=== PATIENT | male | born 1940 | race Caucasian/White ===

== ENCOUNTER 2017-08-12 08:15 | Emergency (ER) | payer MEDICARE, OTHER ==
[~2017-08-12] VITALS: Ht 170.2 cm; Wt 89.0 kg
[2017-08-12 08:22] VITALS: Ht 170.2 cm; Wt 89.0 kg
[2017-08-12] MEDS ORDERED: morphine 4 MG/ML VIAL IV STA (09:10)
[2017-08-12] MEDS ORDERED: SOD CHLORIDE 0.9% 1,000 ML IV STA (09:10)
[2017-08-12] MEDS ORDERED: KETOROLAC 30 MG INJ IV STA (09:10)
[2017-08-12] MEDS ORDERED: ONDANSETRON 4 MG INJ IV STA ×3 (09:10→11:17)
--- NOTE | 2017-08-12 09:17 | ERD ---
ER Documentation Chief Complaint Chief Complaint Complains of back and flank pain x 5 days HPI This is a very pleasant 77-year-old male with a past medical history of remote prostate cancer, in remission who presents to the emergency department complaining of left flank pain for the past 5 days. Patient indicated that 2 days before the onset of the pain he had been lying on the left side for roughly 4 hours on hard surfaces he was fixing a leak in his sink. The patient lives in [facility]. Indicates he did not feel any pain the day after the prolonged immobilization and came to drive to [place] to visit his brother. He indicates that during the drive he started to develop some left flank pain. The pain has progressively worsened over the past 24 hours. He took 400 mg of Motrin prior to arrival with no improvement of his symptoms. He states that the pain is localized to the left flank region, 8 out of 10 in intensity, and is exacerbated with movement. He denies any changes in his bladder or bowel frequency. He has had no fevers or shaking or chills. He denies any shortness of breath at rest or exertion. He denies any chest pain or pressure that radiates the neck arm back or jaw. He denies any calf tenderness or swelling. He states he has never had any similar symptoms in the past. He denies any hemoptysis hematemesis or melanotic stools and denies any nausea. ROS All systems reviewed and are negative except as per history of present illness. Medications Home Meds Reported Medications Atorvastatin Calcium* (Atorvastatin Calcium*) 20 Mg Tablet, 20 MG PO QHS, #30 TAB 08/12/17 Lisinopril* (Lisinopril*) 20 Mg Tablet, 20 MG PO DAILY, #30 TAB 08/12/17 Temazepam* (Temazepam*) 30 Mg Capsule, 30 MG PO HS Y for INSOMNIA, CAP 08/12/17 Aspirin* (Aspirin* Chew) 81 Mg Tab.chew, 81 MG PO DAILY, TAB.CHEW 08/12/17 Discontinued Reported Medications Simvastatin* (Zocor*) 20 Mg Tablet, 20 MG PO QHS, #30 TAB 08/12/17 Simvastatin* (Zocor*) 20 Mg Tablet, 20 MG PO QHS, #30 TAB 08/12/17 Allergies Allergies: Coded Allergies: Penicillins (Verified Allergy, Severe, 08/12/17) PMhx/Soc History of Surgery: Yes ([facility]EM[facility] 2015) Hx Neurological Disorder: No Hx Respiratory Disorders: No Hx Cardiac Disorders: Yes (HTN) Hx Psychiatric Problems: No Hx Alcohol Use: No Hx Substance Use: No Smoking Status: Never smoker Physical Exam Vitals Vital Signs Date Time Temp Pulse Resp B/P Pulse Ox O2 Delivery O2 Flow Rate FiO2 08/12/17 08:22 98.6 79 20 149/83 98 Physical Exam Constitutional:Well-developed. Well-nourished. HEENT:Normocephalic. Atraumatic.Pupils were equal round reactive to light. Moist mucous membranes.No tonsillar exudates. Neck: No nuchal rigidity. No lymphadenopathy. No posterior cervical spine tenderness or step-offs. Respiratory: Not using accessory muscles of respiration.Lungs were clear to auscultation bilaterally. No rhonchi. No rales. No wheezing. Cardiovascular: Regular rate regular rhythm.No murmurs. No rubs were appreciated.S1, S2 normal. Distal pulses are palpable 2+ bilaterally. GI: Abdomen was soft. Nontender. Non Distended. No pulsatile abdominal masses or bruits. No rebound. No guarding. Bowel sounds were present and normal. Left CVA tenderness. No flank ecchymosis. No periumbilical ecchymosis. Muscle skeletal: Full range of motion of both the upper and lower extremities bilaterally.Normal muscle tone.No assymetrical calf tenderness or swelling. Christy's sign negative bilaterally. Straight leg test negative bilaterally. Skin: No petechia, no purpura. No lesions on the palms or the soles of the feet. No maculopapular rash. NEURO: Patient was alert, awake, orientated x3.No facial droop. Gait observed and normal with no ataxia.Speech had regular rate and rhythm. No focal neurological deficits. Result Diagram: 08/12/1730 08/12/1730 Results 24 hrs Laboratory Tests Test 08/12/17 09:30 White Blood Count 6.610^3/ul Red Blood Count 4.6610^6/ul Hemoglobin 14.5g/dl Hematocrit 44.6% Mean Corpuscular Volume 95.7fl Mean Corpuscular Hemoglobin 31.1pg Mean Corpuscular Hemoglobin Concent 32.5g/dl Red Cell Distribution Width 12.6% Platelet Count 86730^3/UL Mean Platelet Volume 10.0fl Neutrophils % 55.9% Lymphocytes % 28.9% Monocytes % 9.9% Eosinophils % 4.4% Basophils % 0.6% Nucleated Red Blood Cells % 0.0/100WBC Neutrophils # 3.710^3/ul Lymphocytes # 1.910^3/ul Monocytes # 0.710^3/ul Eosinophils # 0.310^3/ul Basophils # 0.010^3/ul Nucleated Red Blood Cells # 0.010^3/ul Prothrombin Time 11.9Sec Prothrombin Time Ratio 0.9 INR International Normalized Ratio 0.88 Activated Partial Thromboplast Time 26.8Sec D-Dimer 391.05ng/ml D-Dimer Comment Urine Color YELLOW Urine Clarity CLEAR Urine pH 5.0 Urine Specific Flushing 1.019 Urine Ketones NEGATIVEmg/dL Urine Nitrite NEGATIVEmg/dL Urine Bilirubin NEGATIVEmg/dL Urine Urobilinogen NEGATIVEmg/dL Urine Leukocyte Esterase NEGATIVELeu/ul Urine Hemoglobin NEGATIVEmg/dL Urine Glucose NEGATIVEmg/dL Urine Total Protein NEGATIVEmg/dl Sodium Level 147mmol/L Potassium Level 4.3mmol/L Chloride Level 107mmol/L Carbon Dioxide Level 27mmol/L Anion Gap 17 Blood Urea Nitrogen 19mg/dl Creatinine 0.97mg/dl Glucose Level 100mg/dl Calcium Level 9.5mg/dl Total Bilirubin 0.4mg/dl Direct Bilirubin 0.00mg/dl Indirect Bilirubin 0.4mg/dl Aspartate Amino Transf (AST/SGOT) 42IU/L Alanine Aminotransferase (ALT/SGPT) 43IU/L Alkaline Phosphatase 93IU/L Total Protein 8.0g/dl Albumin 4.7g/dl Globulin 3.30g/dl Albumin/Globulin Ratio 1.42 Current Medications Medications (Trade) Dose Ordered Sig/Paul Route PRN Reason Start Time Stop Time Status Last Admin Dose Admin Sodium Chloride (NS) 1,000 ml @ 1,000 mls/hr Q1H STAT IV 08/12/17 09:10 08/12/17 10:09 DC 08/12/17 09:38 Morphine Sulfate (morphine) 4 mg ONCE STAT IV 08/12/17 09:10 08/12/17 09:12 DC 08/12/17 09:38 Ondansetron HCl (Zofran Inj) 4 mg ONCE STAT IV 08/12/17 09:10 08/12/17 09:12 DC 08/12/17 09:38 Ketorolac Tromethamine (Toradol) 30 mg ONCE STAT IV 08/12/17 09:10 08/12/17 09:12 DC 08/12/17 09:38 Hydromorphone HCl (Dilaudid) 1 mg ONCE STAT IV 08/12/17 10:01 08/12/17 10:02 DC 08/12/17 10:06 Ondansetron HCl (Zofran Inj) 4 mg ONCE STAT IV 08/12/17 10:01 08/12/17 10:02 DC 08/12/17 10:07 Hydromorphone HCl (Dilaudid) 1 mg ONCE STAT IV 08/12/17 11:17 08/12/17 11:18 DC 08/12/17 11:19 Ondansetron HCl (Zofran Inj) 4 mg ONCE STAT IV 08/12/17 11:17 08/12/17 11:18 DC 08/12/17 11:19 Procedures/MDM The patient presented to the emergency department with back pain. My differential diagnosis included but was not limited to spinal origins of the pain such as fracture, osteomyelitis, epidural abscess, neoplasm, spondylolishtesis, discogenic, cauda equina syndrome or musculoligamentous. Nonspinal causes such as AAA, upper UTI, renal colic, aortic dissection, abdominal neoplasm were also considered as an etiology into their pain. I obtained a CT scan of the abdomen which indicated that the patient had focal areas of cutaneous thickening with subcutaneous focal fat stranding that was seen in the bilateral upper abdomen that could be related to injection sites or cellulitis or trauma. I did feel this was likely result of the patient's trauma prolonged immobilization. There is no evidence of ecchymosis on physical exam. And no leukocytosis, no urinary tract infection and no electrolyte abnormalities. I also obtained a d-dimer as the patient is a low pretest probability according to the well's criteria for pulmonary embolism. The d-dimer was normal my clinical suspicion was low for pulmonary embolism as he did have recent prolonged immobilization with travel from [place] to [place]. There is no signs of cauda equina syndrome or neurological compromise sedation. Observation Note: Time: 4 hours Family Hx: No Hypertension Evaluation: Multiple exams showed improving symptoms and no evidence of neurological deficits and his pain had improved. Feels symptoms are likely result of muscle skeletal injury the patient will be discharged home with anti- inflammatories and muscle relaxants. Departure Diagnosis: Primary Impression: Injury of back Encounter type: initial encounter Qualified Code: S39.92XA - Injury of back , initial encounter Condition: ELENA Maurice Aug 12, 2017 09:17
[2017-08-12] MEDS ORDERED: HYDROmorphONE 1 MG/ML SYG IV STA ×2 (10:01→11:17)
--- NOTE | 2017-08-12 10:28 | RADRPT ---
PROCEDURE: XR Chest. CLINICAL INDICATION: Abdominal pain TECHNIQUE: Single frontal view of the chest was obtained COMPARISON: None FINDINGS: No pleural effusion or pneumothorax. No consolidation. Top normal cardiomediastinal silhouette. Left chest wall AICD with leads projecting over the right a trial appendage and right ventricle. No acute osseous abnormality. IMPRESSION: No acute cardiopulmonary disease. Mild cardiomegaly. RPTAT: EE Physician Nathanael Date Time Electronically viewed and signed by Vinita Pritchard Physician on 08/12/2017 10:27 /
--- NOTE | 2017-08-12 10:29 | RADRPT ---
PROCEDURE: CT Abdomen and Pelvis without contrast. CLINICAL INDICATION: Left flank pain for five days. History of prostate cancer. TECHNIQUE: CT scan of the abdomen and pelvis without contrast was performed on a multidetector hig h-resolution CT scanner. The patient was scanned without intravenous contrast. Coronal and sagittal reformatted images were obtained from the axial source images. Images were reviewed on a high-resol [employer] PACS workstation. One or more of the following dose reduction techniques were used: Automated exposure control, adjustment of the mA and/or kV according to patient size, use of iterative recon struction technique. The total exam CTDI equals 15.25 mGy and the total exam DLP equals 971.44 mGy- cm. COMPARISON: None. FINDINGS: CT abdomen: The lung bases are clear. The heart size is normal, without pericardial thickening or effusion. The liver is normal in size and density without focal mass or intrahepatic biliary dilatation. The spleen is normal in size and homogeneous in density. The stomach is grossly unremarkable. The panc reas as visualized is normal. The gallbladder and biliary tree are unremarkable and there is no escobar dence for biliary dilatation. The adrenal glands are symmetric and normal. A 1.8 cm partially exop hytic cyst is present at the superior pole of the left kidney. There is also a small 1.3 cm left par apelvic cyst. Small calcification within the left renal pelvis may represent small nonobstructive ca lculi or vascular calcifications. Retroaortic left renal vein is noted. kidneys are symmetrically un remarkable as well. No renal calculus or obstructive uropathy or mass lesion is seen. The aorta is of normal caliber. Moderate aortoiliac atherosclerotic calcifications are present. The re is no retroperitoneal lymphadenopathy. The javier hepatis region is clear. The small bowel and m esentery, as visualized, are unremarkable. Focal areas of cutaneous thickening with subcutaneous foc al fat stranding are seen in the bilateral upper abdomen, possibly related to injection sites or dawna lulitis/trauma. CT pelvis: The small bowel loops situated within the pelvis are unremarkable. The pelvic organs are normal. T he pelvic sidewalls and inguinal regions are clear. The sigmoid colon and rectum are unremarkable. The appendix is normal. No mass, lymphadenopathy, or free fluid is seen. No acute inflammation is s een. The surrounding osseous structures are unremarkable. No osteolytic or osteoblastic lesion is detec artur. IMPRESSION: 1. No abdominal or pelvic acute inflammatory process, mass, or lymphadenopathy. 2. Small left renal cysts. 3. Scattered small calcification in the left renal pelvis may represent nonobstructive calculi vers us vascular calcifications. 4. Focal areas of cutaneous thickening with subcutaneous focal fat stranding are seen in the bilate ral upper abdomen, possibly related to injection sites or cellulitis/trauma. RPTAT: QQ .Addison Pinzon MD, MD Date Time Electronically viewed and signed by .Addison Pinzon MD, on 08/12/2017 10:29 .A/
[2017-08-12] MEDS ORDERED: TEMA30CA PO (11:07)
[2017-08-12] MEDS ORDERED: ASPI81TA3 PO (11:07)
[2017-08-12] MEDS ORDERED: SIMV20TA PO (11:08)
[2017-08-12] MEDS ORDERED: ATOR20TA38 PO (11:09)
[2017-08-12] MEDS ORDERED: LISI20TA11 PO (11:09)
[2017-08-12] MEDS ORDERED: IBUP800T25 PO (11:50)
[2017-08-12] MEDS ORDERED: DOCU-144 PO (11:50)
[2017-08-12] MEDS ORDERED: HYDR-906 PO (11:50)
[2017-08-12] MEDS ORDERED: DIAZEPAM 5 MG TAB PO ONE (12:00)
[2017-08-12 12:08] VITALS: BP 125/65; PULSE 60; RESP 18; TEMP 97.9
== END 2017-08-12 12:16 | disposition home or self-care (01) ==
LOC: E/R 08:15
DX: S39.92XA Unspecified injury of lower back, initial encounter (principal); I10 Essential (primary) hypertension; R10.9 Unspecified abdominal pain; X58.XXXA Exposure to other specified factors, initial encounter; Y92.000 Kitchen of unspecified non-institutional (private) residence as the place of occurrence of the external cause; Z79.82 Long term (current) use of aspirin; Z85.46 Personal history of malignant neoplasm of prostate; Z95.0 Presence of cardiac pacemaker
CPT/HCPCS: 36415; 71010; 74176; 80053; 81003; 85025; 85378; 85610; 85730; 87086; 96374; 96375; 96376; 99285; J1170; J1885; J2270; J2405; J7030